=== PATIENT | male | born 1955 | race Caucasian/White ===

== ENCOUNTER 2019-02-10 15:53 | Outpatient (CLI) | payer MEDICARE, OTHER ==
--- NOTE | 2019-02-10 16:44 | MRI ---
EXAM: MRI of right shoulder PROVIDED CLINICAL HISTORY: Pain status post injury 2 months ago COMPARISON: None FINDINGS: The components of the rotator cuff appear intact. The long head biceps tendon appears intact and norm ally located. The glenoid labrum and glenohumeral articular cartilage are suboptimally evaluated in the absence of joint distention. There is abnormal signal present in the region of the superior labrum suspicious for SLAP tear with propagation to involve the posterior-superior glenoid labrum. No focal articular c artilage defect is apparent. The amount of fluid within the glenohumeral joint appears physiologic. There is greater than physiolo gic subacromial subdeltoid bursal fluid. There is a thickened and T2 hyperintense appearance to the inferior glenohumeral ligament, particular ly near its humeral attachment. Conspicuous acromioclavicular joint osteoarthrosis changes are seen with mass effect upon the subjace nt supraspinatus. IMPRESSION: 1. Findings compatible with SLAP tear. 2. Thickened and T2 hyperintense appearance to the inferior glenohumeral ligament may reflect partial tearing. This appearance can also be seen in the setting of adhesive capsulitis. 3. Prominent acromioclavicular joint osteoarthrosis and greater than physiologic subacromial subdelto id bursal fluid suggesting bursitis. Correlate for subacromial impingement.
== END 2019-02-10 15:54 | disposition home or self-care (01) ==
LOC: SCSMRI 15:53
PROVIDERS: ATTEND Family Medicine
DX: M75.41 Impingement syndrome of right shoulder (principal); M19.011 Primary osteoarthritis, right shoulder